=== PATIENT | male | born 1985 | race Caucasian/White ===

== ENCOUNTER 2019-01-04 08:53 | Emergency (ER) | payer BC, OTHER ==
[~2019-01-04] VITALS: Ht 175.3 cm; Wt 95.5 kg
[2019-01-04] MEDS ORDERED: KETOROLAC 30 MG/ML VIAL (J1885) IM ONE (09:30)
--- NOTE | 2019-01-04 11:02 | REP ---
Scrotal ultrasound for left testicular pain this morning. The patient had a vasectomy 8 years ago. The testes are normal size. The right testis measures 4.1 x 2.1 x 2.9 cm. Left testis measures 4.4-0.0 x 2.6 cm. There is vascular flow in both testes. The Doppler resistive index of the parenchymal arteries of the right testis is 0.62 and left testis 0.54. There are no testicular masses. There is hyperemia of the left epididymal head compatible with left epididymitis. There are bilateral epididymal head cysts, the one right measuring 7 mm on the left 6.5 mm. 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 Impression: There is vascular flow in both testes. There are no testicular masses. There is hyperemia of the left epididymis compatible with epididymitis. 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 Electronically Signed by Juan Coto MD 01/04/2019 10:53 A
[2019-01-04] MEDS ORDERED: IBUP-1022 PO (11:08)
[2019-01-04] MEDS ORDERED: LEVA1TAB2 PO (11:08)
[2019-01-04 11:18] VITALS: BP 124/73
== END 2019-01-04 11:22 | disposition home or self-care (01) ==
LOC: M ED 08:53
DX: N45.1 Epididymitis (principal); Z88.1 Allergy status to other antibiotic agents; Z88.2 Allergy status to sulfonamides
CPT/HCPCS: 76870; 81001; 93976; 96372; 99283; J1885